=== PATIENT | female | born 1980 | race Caucasian/White ===

== ENCOUNTER 2017-08-06 20:48 | Emergency (ER) | payer OTHER, MEDICAID ==
[~2017-08-06] VITALS: Ht 167.6 cm; Wt 81.7 kg
[~2017-08-06 20:48] MED LIST: ACETAMINOPHEN-1 EAC1 PO; AUGMENTIN 875875 MG PO; BENTYL 20 MG TA20 M1 PO; CIPRO250 M2 PO; CIPRO500 MG PO; CIPROFLOXACIN500 M1 PO; CIPROFLOXACIN500 M3 PO; COLACE100 MG PO; FLAGYL500 MG PO; FLEXERIL PO; HYDROCODONE-AP1 EAC6 PO; HYDROCODONE-APA1 TA1 PO; IBUPROFEN 800800 M1 PO; IBUPROFEN 800800 MG PO; IRON325 PO; LORTAB 5 MG/5001 TA1 PO; NAPROSYN500 MG PO; NOHOMEMEDICATIONS; NORCO 5-325 TA1 EACH PO; NORETHINDRONE AC5 M1 PO; ONDANSETRON HCL4 M2 PO; PENICILLIN VK250 MG PO; PHENERGAN 25 MG25 MG PO; PYRIDIUM200 MG PO; TRAMADOL 50 MG50 MG PO; TRINATE TABLET1 TAB PO; TYLENOL325 MG PO; ULTRAM 50MG TAB50 MG PO; ZOFRAN ODT4 MG PO; [UNRECOGNIZED DRUG - OTHER]
[2017-08-06] MEDS ORDERED: NOHOMEMEDICATIONS (21:01)
[2017-08-06 21:22] LABS: ABSOLUTE BASOPHILS 0.1 thou/uL (0.0-0.2); ABSOLUTE EOSINOPHILS 0.2 thou/uL (0.0-0.7); ABSOLUTE LYMPHOCYTES 2.2 thou/uL (0.8-5.3); ABSOLUTE MONOCYTES 0.4 thou/uL (0.0-1.2); ABSOLUTE NEUTROPHILS 1.6 thou/uL (1.6-8.1); BASOPHILS 1.4 %; EOSINOPHILS 4.2 %; HEMATOCRIT 25.2 % (37.0-47.0); HEMOGLOBIN 7.7 gm/dL (12.0-15.0); LYMPHOCYTES 50.1 %; MCH 19.6 pg (26.0-34.0); MCHC 30.7 g/dL (28.0-37.0); MCV 63.9 fL (80.0-100.0); MONOCYTES 8.5 %; MPV 8.4 fl. (7.2-11.1); NUCLEATED RBCS 0 /100WBC; PLATELET COUNT* 134 thou/uL (150-400); POLYS 35.8 %; RBC 3.94 mil/uL (4.20-5.00); RDW-CV 21.8 % (10.5-14.5); WBC 4.5 thou/uL (4.0-11.0)
[2017-08-06 21:29] LABS: CALCIUM 8.5 mg/dL (8.5-10.1); CREATININE 0.6 mg/dL (0.6-1.3); POTASSIUM 3.8 mmol/L (3.5-5.1)
[2017-08-06 21:34] LABS: ALBUMIN 3.6 g/dL (3.4-5.0); TOTAL BILIRUBIN 0.4 mg/dL (<0.1-1.0); TOTAL PROTEIN 7.3 g/dL (6.4-8.2)
[2017-08-06 21:48] LABS: PLATELET ESTIMATE ADEQUATE
[2017-08-06 21:49] LABS: HYPOCHROMASIA 2+; OVALOCYTES Occasional
[2017-08-06 21:52] LABS: ANISOCYTOSIS 2+; MICROCYTES 3+
[2017-08-06 23:08] LABS: URINE BILIRUBIN NEGATIVE (Negative); URINE BLOOD 3+ (Negative); URINE CLARITY CLOUDY; URINE COLOR RED; URINE GLUCOSE-RANDOM NEGATIVE (Negative); URINE KETONES TRACE (Negative); URINE LEUKOCYTES-REFLEX NEGATIVE (Negative); URINE NITRITE-REFLEX NEGATIVE (Negative); URINE PROTEIN 2+ (Negative); URINE SPECIFIC GRAVITY >= 1.030 (1.005-1.030); URINE UROBILINOGEN 0.2 E.U./dl (0.2-1.0)
[2017-08-06 23:10] LABS: URINE RBC >20 Many /HPF (0-2)
[2017-08-06 23:11] LABS: CASTS None Seen /LPF (None Seen); URINE WBC-REFLEX 0-5 Rare /HPF (0-5)
[2017-08-06 23:12] LABS: BACTERIA-REFLEX 1-9 Few /HPF (None Seen); CRYSTALS None Seen /LPF (None Seen); SQUAMOUS 4-10 Moderate /LPF (0-3)
[2017-08-06 23:13] LABS: MUCUS None Seen strn/LPF (None Seen)
[2017-08-07 00:28] VITALS: BP 113/70
== END 2017-08-07 00:30 | disposition home or self-care (01) ==
LOC: M.ERS 20:48
PROVIDERS: Nurse Practitioner Family
DX: N93.8 Other specified abnormal uterine and vaginal bleeding (principal); D50.0 Iron deficiency anemia secondary to blood loss (chronic); M19.90 Unspecified osteoarthritis, unspecified site; Z87.09 Personal history of other diseases of the respiratory system; Z88.1 Allergy status to other antibiotic agents

== ENCOUNTER 2017-08-24 17:43 | Emergency (ER) | payer OTHER, MEDICAID ==
[~2017-08-24] VITALS: Ht 167.6 cm; Wt 77.1 kg
[2017-08-24 18:30] LABS: URINE BILIRUBIN NEGATIVE (Negative); URINE BLOOD TRACE (Negative); URINE CLARITY SL CLOUDY; URINE COLOR YELLOW; URINE GLUCOSE-RANDOM NEGATIVE (Negative); URINE KETONES TRACE (Negative); URINE PROTEIN 1+ (Negative); URINE SPECIFIC GRAVITY 1.025 (1.005-1.030)
[2017-08-24 18:31] LABS: URINE LEUKOCYTES-REFLEX 3+ (Negative); URINE NITRITE-REFLEX POSITIVE (Negative)
[2017-08-24 19:06] LABS: BACTERIA-REFLEX >30 Many /HPF (None Seen); CASTS None Seen /LPF (None Seen); MUCUS 4-6 Moderate strn/LPF (None Seen); SQUAMOUS 4-10 Moderate /LPF (0-3); URINE RBC 3-10 Few /HPF (0-2); URINE WBC-REFLEX >25 Many /HPF (0-5)
[2017-08-24 19:07] LABS: CRYSTALS None Seen /LPF (None Seen)
[2017-08-24] MEDS ORDERED: CIPRO500 MG PO (19:33)
[2017-08-24] MEDS ORDERED: TRAMADOL 50 MG50 MG PO (19:33)
[2017-08-24 20:15] VITALS: BP 99/71
== END 2017-08-24 20:16 | disposition home or self-care (01) ==
LOC: M.ERS 17:43
PROVIDERS: Physician Assistant
DX: N39.0 Urinary tract infection, site not specified (principal); R51 Headache; M25.551 Pain in right hip; M19.90 Unspecified osteoarthritis, unspecified site; R09.1 Pleurisy

== ENCOUNTER 2017-11-24 14:23 | Emergency (ER) | payer OTHER, MEDICAID ==
[~2017-11-24] VITALS: Ht 167.6 cm; Wt 81.7 kg
[2017-11-24 15:02] LABS: HEMATOCRIT 23.5 % (37.0-47.0); HEMOGLOBIN 7.2 gm/dL (12.0-15.0); MCH 18.9 pg (26.0-34.0); MCHC 30.6 g/dL (28.0-37.0); MCV 61.7 fL (80.0-100.0); MPV 8.5 fl. (7.2-11.1); NUCLEATED RBCS 0 /100WBC; PLATELET COUNT* 176 thou/uL (150-400); RDW-CV 20.7 % (10.5-14.5); WBC 5.5 thou/uL (4.0-11.0)
[2017-11-24 15:11] LABS: ANION GAP 11 mmol/L (7-16); BUN 13 mg/dL (7-18); CALCIUM 8.6 mg/dL (8.5-10.1); CHLORIDE 104 mmol/L (98-107); CO2 26 mmol/L (21-32); CREATININE 0.7 mg/dL (0.6-1.3); GLUCOSE 97 mg/dL (70-99); POTASSIUM 3.4 mmol/L (3.5-5.1); SODIUM 141 mmol/L (136-145)
[2017-11-24 15:14] LABS: APTT 23.3 Seconds (25.0-31.3); INR 1.1; PROTIME 10.3 Seconds (9.20-11.50)
[2017-11-24 15:29] LABS: ABSOLUTE BASOPHILS 0.1 thou/uL (0.0-0.2); ABSOLUTE EOSINOPHILS 0.1 thou/uL (0.0-0.7); ABSOLUTE LYMPHOCYTES 2.7 thou/uL (0.8-5.3); ABSOLUTE MONOCYTES 0.2 thou/uL (0.0-1.2); ABSOLUTE NEUTROPHILS 2.5 thou/uL (1.6-8.1)
[2017-11-24 15:30] LABS: ALBUMIN 3.7 g/dL (3.4-5.0); ALKALINE PHOSPHATASE 41 U/L (46-116); CK-MB MASS < 0.5 ng/mL (<0.5-3.6); LIPASE 194 U/L (73-393); MAGNESIUM 2.2 mg/dL (1.8-2.4); NT-PRO BRAIN NAT PEPTIDE 72 pg/mL (<300); PLATELET ESTIMATE ADEQUATE; SGOT 14 U/L (15-37); SGPT 17 U/L (30-65); TOTAL BILIRUBIN 0.3 mg/dL (<0.1-1.0); TOTAL PROTEIN 7.1 g/dL (6.4-8.2); TROPONIN-I LEVEL <0.06 ng/mL (<0.06)
[2017-11-24 15:31] LABS: ANISOCYTOSIS 2+; HYPOCHROMASIA 3+; MICROCYTES 3+; OVALOCYTES 1+; POLYCHROMASIA Occasional
[2017-11-24 15:48] VITALS: BP 122/70
--- NOTE | 2017-11-25 16:53 | EKG ---
[place] [address] ELECTROCARDIOGRAM REPORT Name: APOLINAR PADILLA Room: [facility]#: [id number] Admission: 11/24/17 Attend Phys: Discharge: 11/24/17 Date of : 82 Report #: [id number] THIS REPORT FOR: //name// [facility] Test Date: 2017-11-24 Test Time: 14:30:12 Pat Name: APOLINAR PADILLA Department: Room: Gender: F Field Attendant: ELAINE : 1980 Requested By: Zan Adkins Order Number: [id number] MD: Carlos Mccrary Measurements Intervals [place] Rate: 66 P: 61 [place]: 154 QRS: 26 QRSD: 95 T: 29 QT: 397 QTc: 416 Interpretive Statements Sinus rhythm Compared to ECG 11/14/2016 12:28:47 Sinus bradycardia no longer present Electronically Signed On 11-25-2017 16:53:23 CDT by Carlos Mccrary [email or web address] <ELECTRONICALLY SIGNED> By: Carlos Mccrary MD, [facility] 11/25/17 1653 1430 1430 Carlos Mccrary MD, FACC /EPI
== END 2017-11-24 15:49 | disposition home or self-care (01) ==
LOC: M.ERS 14:23
PROVIDERS: Family Medicine
DX: D64.9 Anemia, unspecified (principal); M19.90 Unspecified osteoarthritis, unspecified site; N80.9 Endometriosis, unspecified; M41.9 Scoliosis, unspecified; Z88.8 Allergy status to other drugs, medicaments and biological substances

== ENCOUNTER 2018-02-25 15:15 | Emergency (ER) | payer OTHER, MEDICAID ==
[~2018-02-25] VITALS: Ht 167.6 cm; Wt 77.1 kg
[2018-02-25] MEDS ORDERED: MEDROLDOSEPACK PO (17:25)
[2018-02-25 17:36] VITALS: BP 101/69
== END 2018-02-25 17:37 | disposition home or self-care (01) ==
LOC: M.ERS 15:15
DX: R20.2 Paresthesia of skin (principal); N80.9 Endometriosis, unspecified; M19.90 Unspecified osteoarthritis, unspecified site; M41.9 Scoliosis, unspecified; Z86.2 Personal history of diseases of the blood and blood-forming organs and certain disorders involving the immune mechanism; Z88.1 Allergy status to other antibiotic agents

== ENCOUNTER 2018-10-02 20:54 | Emergency (ER) | payer OTHER ==
[~2018-10-02] VITALS: Ht 167.6 cm; Wt 81.7 kg
[~2018-10-02 20:54] MED LIST changes: +BENZONATATE200 MG PO; +GABAPENTIN 100100 MG PO; +MEDROLDOSEPACK PO; +PREDNISONE 20 M20 M1 PO; +PROVERA10 MG PO; +ZPAK PO
[2018-10-02 21:22] LABS: ABSOLUTE BASOPHILS 0.1 thou/uL (0.0-0.2); ABSOLUTE EOSINOPHILS 0.1 thou/uL (0.0-0.7); ABSOLUTE LYMPHOCYTES 2.5 thou/uL (0.8-5.3); ABSOLUTE MONOCYTES 0.5 thou/uL (0.0-1.2); ABSOLUTE NEUTROPHILS 2.4 thou/uL (1.6-8.1); BASOPHILS 1.1 %; EOSINOPHILS 1.1 %; HEMATOCRIT 26.3 % (37.0-47.0); HEMOGLOBIN 7.9 gm/dL (12.0-15.0); MCH 18.9 pg (26.0-34.0); MONOCYTES 9.3 %; MPV 8.3 fl. (7.2-11.1); NUCLEATED RBCS 0 /100WBC; PLATELET COUNT* 398 thou/uL (150-400); POLYS 43.5 %; RBC 4.18 mil/uL (4.20-5.00); RDW-CV 24.3 % (10.5-14.5); WBC 5.6 thou/uL (4.0-11.0)
[2018-10-02 21:24] LABS: URINE BILIRUBIN NEGATIVE (Negative); URINE BLOOD NEGATIVE (Negative); URINE CLARITY CLEAR; URINE COLOR YELLOW; URINE GLUCOSE-RANDOM NEGATIVE (Negative); URINE KETONES TRACE (Negative); URINE LEUKOCYTES-REFLEX NEGATIVE (Negative); URINE NITRITE-REFLEX NEGATIVE (Negative); URINE PROTEIN NEGATIVE (Negative); URINE SPECIFIC GRAVITY >= 1.030 (1.005-1.030)
[2018-10-02 21:32] LABS: ALBUMIN 3.9 g/dL (3.4-5.0); CALCIUM 9.1 mg/dL (8.5-10.1); CREATININE 0.7 mg/dL (0.6-1.3); POTASSIUM 3.4 mmol/L (3.5-5.1); TOTAL BILIRUBIN 0.5 mg/dL (<0.1-1.0); TOTAL PROTEIN 7.6 g/dL (6.4-8.2)
[2018-10-02 21:55] LABS: ANISOCYTOSIS 2+; OVALOCYTES 2+; TARGET CELLS 1+; TEARDROPS Occasional
[2018-10-02 21:56] LABS: HYPOCHROMASIA 1+; MICROCYTES 2+; PLATELET ESTIMATE ADEQUATE; POIKILOCYTOSIS 2+; POLYCHROMASIA 1+
[2018-10-02] MEDS ORDERED: CITRATE OF MAG296 ML PO (21:59)
[2018-10-02 22:27] VITALS: BP 117/66
== END 2018-10-02 22:27 | disposition home or self-care (01) ==
LOC: M.ERS 20:54
PROVIDERS: Physician Assistant
DX: D64.9 Anemia, unspecified (principal); R10.84 Generalized abdominal pain; Z88.8 Allergy status to other drugs, medicaments and biological substances; N80.9 Endometriosis, unspecified

== ENCOUNTER 2018-10-18 06:18 | Emergency (ER) | payer OTHER ==
[~2018-10-18] VITALS: Ht 167.6 cm; Wt 77.1 kg
[~2018-10-18 06:18] MED LIST changes: +CITRATE OF MAG296 ML PO
[2018-10-18] MEDS ORDERED: VITAMINC500 PO (06:30)
[2018-10-18 06:39] LABS: URINE BILIRUBIN NEGATIVE (Negative); URINE BLOOD NEGATIVE (Negative); URINE CLARITY CLEAR; URINE COLOR YELLOW; URINE GLUCOSE-RANDOM NEGATIVE (Negative); URINE KETONES NEGATIVE (Negative); URINE LEUKOCYTES-REFLEX NEGATIVE (Negative); URINE NITRITE-REFLEX NEGATIVE (Negative); URINE PROTEIN NEGATIVE (Negative); URINE SPECIFIC GRAVITY >= 1.030 (1.005-1.030); URINE UROBILINOGEN 0.2 E.U./dl (0.2-1.0)
[2018-10-18] MEDS ORDERED: FLEXERIL PO (07:02)
[2018-10-18 07:12] VITALS: BP 109/69
== END 2018-10-18 07:15 | disposition home or self-care (01) ==
LOC: M.ERS 06:18
PROVIDERS: Emergency Medicine
DX: M79.10 Myalgia, unspecified site (principal); R10.31 Right lower quadrant pain; Z88.8 Allergy status to other drugs, medicaments and biological substances

== ENCOUNTER 2018-11-03 15:27 | Emergency (ER) | payer OTHER ==
[~2018-11-03] VITALS: Ht 167.6 cm; Wt 77.1 kg
[~2018-11-03 15:27] MED LIST changes: +VITAMINC500 PO
[2018-11-03] MEDS ORDERED: NAPROSYN500 MG PO (15:55)
[2018-11-03 16:45] VITALS: BP 107/61
== END 2018-11-03 16:46 | disposition home or self-care (01) ==
LOC: M.ERS 15:27
DX: S20.212A Contusion of left front wall of thorax, initial encounter (principal); N80.9 Endometriosis, unspecified; M19.90 Unspecified osteoarthritis, unspecified site; Z88.8 Allergy status to other drugs, medicaments and biological substances; Z88.1 Allergy status to other antibiotic agents; Z86.2 Personal history of diseases of the blood and blood-forming organs and certain disorders involving the immune mechanism; W01.0XXA Fall on same level from slipping, tripping and stumbling without subsequent striking against object, initial encounter; Y92.89 Other specified places as the place of occurrence of the external cause; Y93.89 Activity, other specified; Y99.8 Other external cause status

== ENCOUNTER 2019-01-29 07:06 | Emergency (ER) | payer OTHER ==
[~2019-01-29] VITALS: Ht 167.6 cm; Wt 77.1 kg
[2019-01-29 07:41] LABS: ABSOLUTE BASOPHILS 0.1 thou/uL (0.0-0.2); ABSOLUTE LYMPHOCYTES 2.1 thou/uL (0.8-5.3); ABSOLUTE MONOCYTES 0.4 thou/uL (0.0-1.2); ABSOLUTE NEUTROPHILS 2.6 thou/uL (1.6-8.1); BASOPHILS 1.4 %; HEMATOCRIT 21.4 % (37.0-47.0); LYMPHOCYTES 39.9 %; MCH 18.9 pg (26.0-34.0); MCHC 30.5 g/dL (28.0-37.0); MCV 61.8 fL (80.0-100.0); MONOCYTES 8.1 %; MPV 8.6 fl. (7.2-11.1); NUCLEATED RBCS 0 /100WBC; PLATELET COUNT* 190 thou/uL (150-400); POLYS 49.6 %; RBC 3.47 mil/uL (4.20-5.00); WBC 5.2 thou/uL (4.0-11.0)
[2019-01-29 07:49] LABS: HEMOGLOBIN 6.5 gm/dL (12.0-15.0)
[2019-01-29 07:59] LABS: CALCIUM 8.7 mg/dL (8.5-10.1); CREATININE 0.7 mg/dL (0.6-1.3); POTASSIUM 3.3 mmol/L (3.5-5.1)
[2019-01-29 08:04] LABS: ALBUMIN 3.4 g/dL (3.4-5.0); TOTAL BILIRUBIN 0.6 mg/dL (<0.1-1.0); TOTAL PROTEIN 6.8 g/dL (6.4-8.2)
[2019-01-29 08:19] LABS: HYPOCHROMASIA 3+
[2019-01-29 08:21] LABS: ANISOCYTOSIS 2+; MICROCYTES 3+; PLATELET ESTIMATE ADEQUATE
[2019-01-29 09:44] VITALS: BP 109/62
--- NOTE | 2019-01-30 13:50 | EKG ---
[place] [address] ELECTROCARDIOGRAM REPORT Name: APOLINAR PADILLA [id number] Admission: 01/29/19 Attend Phys: Discharge: 01/29/19 Date of : 82 Report #: [id number] THIS REPORT FOR: //name// [facility] ED Test Date: 2019-01-29 Test Time: 07:20:36 Pat Name: APOLINAR PADILLA Department: Room: Gender: F Color Control Operator: OLIVER : 1980 Requested By: Zan Adkins Order Number: [id number] MD: Matti Dover Measurements Intervals [place] Rate: 67 P: 58 [place]: 166 QRS: 18 QRSD: 102 T: 26 QT: 428 QTc: 452 Interpretive Statements Sinus rhythm nonspecific right precordial st-t changes Compared to ECG 11/24/2017 14:30:12 [address] st-t changes are noted Electronically Signed On 01-30-2019 13:50:14 CDT by Matti Dover [email or web address] <ELECTRONICALLY SIGNED> By: Matti Dover MD, [facility] 01/30/19 1350 9 9 Matti Dover MD, FAC /EPI
== END 2019-01-29 09:44 | disposition home or self-care (01) ==
LOC: M.ERS 07:06
PROVIDERS: Family Medicine
DX: R51 Headache (principal); D64.9 Anemia, unspecified; M19.90 Unspecified osteoarthritis, unspecified site; Z88.8 Allergy status to other drugs, medicaments and biological substances

== ENCOUNTER 2019-04-04 07:44 | Emergency (ER) | payer OTHER ==
[~2019-04-04] VITALS: Ht 167.6 cm; Wt 74.8 kg
[2019-04-04 07:54] VITALS: BP 110/62
== END 2019-04-04 08:27 | disposition home or self-care (01) ==
LOC: M.ERS 07:44
DX: M79.671 Pain in right foot (principal); M19.90 Unspecified osteoarthritis, unspecified site; N80.9 Endometriosis, unspecified; Z98.890 Other specified postprocedural states; Z88.6 Allergy status to analgesic agent; Z98.51 Tubal ligation status; Z86.2 Personal history of diseases of the blood and blood-forming organs and certain disorders involving the immune mechanism

== ENCOUNTER 2019-04-18 11:55 | Emergency (ER) | payer OTHER ==
[~2019-04-18] VITALS: Ht 167.6 cm; Wt 74.8 kg
[2019-04-18 13:17] LABS: URINE BILIRUBIN NEGATIVE (Negative); URINE BLOOD 3+ (Negative); URINE CLARITY CLEAR; URINE COLOR YELLOW; URINE GLUCOSE-RANDOM NEGATIVE (Negative); URINE KETONES NEGATIVE (Negative); URINE LEUKOCYTES-REFLEX NEGATIVE (Negative); URINE NITRITE-REFLEX NEGATIVE (Negative); URINE PROTEIN NEGATIVE (Negative)
[2019-04-18 13:24] LABS: BACTERIA-REFLEX 1-9 Few /HPF (None Seen); CASTS None Seen /LPF (None Seen); CRYSTALS None Seen /LPF (None Seen); MUCUS 0-3 Light strn/LPF (None Seen); SQUAMOUS 4-10 Moderate /LPF (0-3); URINE RBC 3-10 Few /HPF (0-2); URINE WBC-REFLEX 0-5 Rare /HPF (0-5)
[2019-04-18 13:48] VITALS: BP 121/78
== END 2019-04-18 13:49 | disposition home or self-care (01) ==
LOC: M.ERS 11:55
PROVIDERS: Nurse Practitioner Family
DX: J00 Acute nasopharyngitis [common cold] (principal); R35.0 Frequency of micturition; N80.9 Endometriosis, unspecified; M19.90 Unspecified osteoarthritis, unspecified site; Z88.6 Allergy status to analgesic agent; Z88.1 Allergy status to other antibiotic agents; Z86.2 Personal history of diseases of the blood and blood-forming organs and certain disorders involving the immune mechanism; Z21 Asymptomatic human immunodeficiency virus [HIV] infection status; Z98.890 Other specified postprocedural states

== ENCOUNTER 2019-05-25 17:32 | Emergency (ER) | payer OTHER ==
[~2019-05-25] VITALS: Ht 167.6 cm; Wt 79.4 kg
[2019-05-25 19:16] LABS: URINE BILIRUBIN NEGATIVE (Negative); URINE BLOOD 2+ (Negative); URINE CLARITY CLEAR; URINE COLOR YELLOW; URINE GLUCOSE-RANDOM NEGATIVE (Negative); URINE KETONES NEGATIVE (Negative); URINE NITRITE-REFLEX NEGATIVE (Negative); URINE PROTEIN NEGATIVE (Negative); URINE SPECIFIC GRAVITY >= 1.030 (1.005-1.030); URINE UROBILINOGEN 0.2 E.U./dl (0.2-1.0)
[2019-05-25 19:26] LABS: URINE LEUKOCYTES-REFLEX 2+ (Negative)
[2019-05-25 19:28] LABS: SQUAMOUS >10 Many /LPF (0-3)
[2019-05-25 19:29] LABS: URINE WBC-REFLEX 6-15 Few /HPF (0-5)
[2019-05-25 19:30] LABS: URINE RBC 3-10 Few /HPF (0-2)
[2019-05-25 19:31] LABS: BACTERIA-REFLEX >30 Many /HPF (None Seen); CASTS None Seen /LPF (None Seen); CRYSTALS None Seen /LPF (None Seen); MUCUS >6 Heavy strn/LPF (None Seen)
[2019-05-25] MEDS ORDERED: COLACE100 MG PO (20:16)
[2019-05-25] MEDS ORDERED: FLAGYL500 M1 PO (20:16)
[2019-05-25 20:32] VITALS: BP 119/76
== END 2019-05-25 20:33 | disposition home or self-care (01) ==
LOC: M.ERS 17:32
PROVIDERS: Nurse Practitioner Family
DX: A59.9 Trichomoniasis, unspecified (principal); K59.00 Constipation, unspecified; N80.9 Endometriosis, unspecified; M19.90 Unspecified osteoarthritis, unspecified site; Z98.51 Tubal ligation status; Z98.890 Other specified postprocedural states; Z86.2 Personal history of diseases of the blood and blood-forming organs and certain disorders involving the immune mechanism

== ENCOUNTER 2019-06-01 17:44 | Emergency (ER) | payer OTHER ==
[~2019-06-01] VITALS: Ht 167.6 cm; Wt 79.8 kg
[~2019-06-01 17:44] MED LIST changes: +FLAGYL500 M1 PO
[2019-06-01] MEDS ORDERED: TYLENOL WITH CO1 TA1 PO (18:51)
[2019-06-01 19:21] VITALS: BP 125/75
== END 2019-06-01 19:22 | disposition home or self-care (01) ==
LOC: M.ERS 17:44
DX: S32.2XXA Fracture of coccyx, initial encounter for closed fracture (principal); M19.90 Unspecified osteoarthritis, unspecified site; N80.9 Endometriosis, unspecified; Z86.2 Personal history of diseases of the blood and blood-forming organs and certain disorders involving the immune mechanism; Z98.890 Other specified postprocedural states; Z88.1 Allergy status to other antibiotic agents; Z88.6 Allergy status to analgesic agent; Z98.51 Tubal ligation status; W01.0XXA Fall on same level from slipping, tripping and stumbling without subsequent striking against object, initial encounter; Y93.89 Activity, other specified; Y92.89 Other specified places as the place of occurrence of the external cause; Y99.8 Other external cause status

== ENCOUNTER 2019-07-19 15:30 | Emergency (ER) | payer OTHER ==
[~2019-07-19] VITALS: Ht 167.6 cm; Wt 65.8 kg
[~2019-07-19 15:30] MED LIST changes: +TYLENOL WITH CO1 TA1 PO
[2019-07-19 15:55] LABS: URINE BILIRUBIN NEGATIVE (Negative); URINE BLOOD 1+ (Negative); URINE CLARITY CLEAR; URINE COLOR YELLOW; URINE GLUCOSE-RANDOM NEGATIVE (Negative); URINE KETONES TRACE (Negative); URINE LEUKOCYTES-REFLEX NEGATIVE (Negative); URINE NITRITE-REFLEX NEGATIVE (Negative); URINE PROTEIN NEGATIVE (Negative); URINE SPECIFIC GRAVITY >= 1.030 (1.005-1.030)
[2019-07-19 16:03] LABS: SQUAMOUS 4-10 Moderate /LPF (0-3); URINE RBC 0-2 Rare /HPF (0-2); URINE WBC-REFLEX 0-5 Rare /HPF (0-5)
[2019-07-19 16:04] LABS: CRYSTALS None Seen /LPF (None Seen); HYALINE CASTS 0-3 Few /LPF (None Seen); MUCUS >6 Heavy strn/LPF (None Seen)
[2019-07-19] MEDS ORDERED: ROBAXIN 750 MG750 MG PO (16:08)
[2019-07-19] MEDS ORDERED: NAPROSYN500 M1 PO (16:08)
[2019-07-19 16:23] VITALS: BP 114/77
== END 2019-07-19 16:24 | disposition home or self-care (01) ==
LOC: M.ERS 15:30
PROVIDERS: Nurse Practitioner Family
DX: S29.012A Strain of muscle and tendon of back wall of thorax, initial encounter (principal); M19.90 Unspecified osteoarthritis, unspecified site; Z98.890 Other specified postprocedural states; Z86.2 Personal history of diseases of the blood and blood-forming organs and certain disorders involving the immune mechanism; Z88.8 Allergy status to other drugs, medicaments and biological substances; X50.0XXA Overexertion from strenuous movement or load, initial encounter; Y93.89 Activity, other specified; Y92.511 Restaurant or cafe as the place of occurrence of the external cause; Y99.8 Other external cause status

== ENCOUNTER 2019-08-10 23:15 | Emergency (ER) | payer OTHER ==
[~2019-08-10] VITALS: Ht 167.6 cm; Wt 72.6 kg
[~2019-08-10 23:15] MED LIST changes: +NAPROSYN500 M1 PO; +ROBAXIN 750 MG750 MG PO
[2019-08-11 00:01] LABS: CALCIUM 8.4 mg/dL (8.5-10.1); CREATININE 0.8 mg/dL (0.6-1.3)
[2019-08-11 00:06] LABS: ALBUMIN 3.8 g/dL (3.4-5.0); TOTAL BILIRUBIN 0.6 mg/dL (<0.1-1.0); TOTAL PROTEIN 7.1 g/dL (6.4-8.2)
[2019-08-11 00:16] LABS: INFLUENZA A ANTIGEN Negative (Negative); INFLUENZA B ANTIGEN Negative (Negative)
[2019-08-11 00:24] LABS: ABSOLUTE LYMPHOCYTES 1.2 thou/uL (0.8-5.3); ABSOLUTE MONOCYTES 0.3 thou/uL (0.0-1.2); ABSOLUTE NEUTROPHILS 1.7 thou/uL (1.6-8.1); BASOPHILS 1.4 %; EOSINOPHILS 1.3 %; HEMATOCRIT 24.5 % (37.0-47.0); HEMOGLOBIN 7.5 gm/dL (12.0-15.0); LYMPHOCYTES 36.5 %; MCH 18.9 pg (26.0-34.0); MCHC 30.7 g/dL (28.0-37.0); MCV 61.6 fL (80.0-100.0); MONOCYTES 9.4 %; MPV 8.6 fl. (7.2-11.1); NUCLEATED RBCS 0 /100WBC; PLATELET COUNT* 274 thou/uL (150-400); POLYS 51.4 %; RBC 3.97 mil/uL (4.20-5.00); RDW-CV 22.5 % (10.5-14.5); WBC 3.4 thou/uL (4.0-11.0)
[2019-08-11 01:18] LABS: URINE BLOOD NEGATIVE (Negative); URINE CLARITY CLEAR; URINE COLOR DARK YELLOW; URINE GLUCOSE-RANDOM NEGATIVE (Negative); URINE KETONES 2+ (Negative); URINE LEUKOCYTES-REFLEX NEGATIVE (Negative); URINE NITRITE-REFLEX NEGATIVE (Negative); URINE PROTEIN 1+ (Negative); URINE SPECIFIC GRAVITY >= 1.030 (1.005-1.030); URINE UROBILINOGEN 0.2 E.U./dl (0.2-1.0)
[2019-08-11 01:19] LABS: ICTOTEST (BILI CONFIRMATORY) Negative (Negative); URINE BILIRUBIN 1+ (Negative)
[2019-08-11] MEDS ORDERED: POTASSIUM20 PO (01:21)
[2019-08-11] MEDS ORDERED: ZOFRAN ODT4 MG DISSOLVE (01:21)
[2019-08-11 01:34] VITALS: BP 141/74
[2019-08-11 03:54] LABS: ANISOCYTOSIS 2+; HYPOCHROMASIA 3+; MICROCYTES 3+
[2019-08-11 03:55] LABS: LARGE PLATELETS RARE; PLATELET ESTIMATE ADEQUATE
--- NOTE | 2019-08-11 10:05 | EKG ---
[place] [address] ELECTROCARDIOGRAM REPORT Name: APOLINAR AGUSTIN [id number] Admission: 08/10/19 Attend Phys: Discharge: 08/11/19 Date of : 82 Report #: [id number] THIS REPORT FOR: //name// [facility] ED Test Date: 2019-08-10 Test Time: 23:34:24 Pat Name: APOLINAR AGUSTIN Department: Room: Gender: F Medicine Assistant: : 1980 Requested By: Elvin Douglas Order Number: [id number] MD: Gray Ball Measurements Intervals [place] Rate: 77 P: 66 [place]: 168 QRS: 38 QRSD: 99 T: 28 QT: 385 QTc: 436 Interpretive Statements Sinus rhythm Probable left ventricular hypertrophy Borderline T abnormalities, anterior leads Compared to ECG 01/29/2019 07:20:36 ST (T wave) deviation no longer present Electronically Signed On 08-11-2019 10:04:51 PARAEDUCATOR by Gray Ball [email or web address] <ELECTRONICALLY SIGNED> By: Gray Ball MD, [facility] 08/11/19 1004 2334 2334 Gray Ball MD, [facility] /EPI
== END 2019-08-11 01:37 | disposition home or self-care (01) ==
LOC: M.ERS 23:15
PROVIDERS: Emergency Medicine Emergency Medical Services
DX: K52.9 Noninfective gastroenteritis and colitis, unspecified (principal); M19.90 Unspecified osteoarthritis, unspecified site; Z86.2 Personal history of diseases of the blood and blood-forming organs and certain disorders involving the immune mechanism; Z98.890 Other specified postprocedural states; Z88.8 Allergy status to other drugs, medicaments and biological substances

== ENCOUNTER 2019-10-28 13:49 | Emergency (ER) | payer OTHER ==
[~2019-10-28] VITALS: Ht 167.6 cm; Wt 74.8 kg
[~2019-10-28 13:49] MED LIST changes: +POTASSIUM20 PO; +ZOFRAN ODT4 MG DISSOLVE
[2019-10-28] MEDS ORDERED: IRON236 MG PO (14:02)
[2019-10-28 14:41] LABS: URINE BILIRUBIN 1+ (Negative); URINE BLOOD NEGATIVE (Negative); URINE CLARITY SL CLOUDY; URINE COLOR DARK YELLOW; URINE GLUCOSE-RANDOM NEGATIVE (Negative); URINE KETONES TRACE (Negative); URINE LEUKOCYTES-REFLEX NEGATIVE (Negative); URINE NITRITE-REFLEX NEGATIVE (Negative); URINE PROTEIN NEGATIVE (Negative); URINE SPECIFIC GRAVITY >= 1.030 (1.005-1.030)
[2019-10-28 14:43] LABS: ICTOTEST (BILI CONFIRMATORY) Negative (Negative)
[2019-10-28 14:49] LABS: CASTS None Seen /LPF (None Seen); CRYSTALS None Seen /LPF (None Seen); MUCUS >6 Heavy strn/LPF (None Seen); SQUAMOUS 4-10 Moderate /LPF (0-3); URINE RBC 3-10 Few /HPF (0-2); URINE WBC-REFLEX 6-15 Few /HPF (0-5)
[2019-10-28 14:51] LABS: ABSOLUTE BASOPHILS 0.1 thou/uL (0.0-0.2); ABSOLUTE EOSINOPHILS 0.1 thou/uL (0.0-0.7); ABSOLUTE LYMPHOCYTES 2.5 thou/uL (0.8-5.3); ABSOLUTE MONOCYTES 0.5 thou/uL (0.0-1.2); ABSOLUTE NEUTROPHILS 1.7 thou/uL (1.6-8.1); BASOPHILS 1.4 %; EOSINOPHILS 1.2 %; HEMATOCRIT 26.5 % (37.0-47.0); HEMOGLOBIN 8.1 gm/dL (12.0-15.0); LYMPHOCYTES 51.1 %; MCH 18.8 pg (26.0-34.0); MCHC 30.8 g/dL (28.0-37.0); MCV 61.2 fL (80.0-100.0); MPV 8.3 fl. (7.2-11.1); NUCLEATED RBCS 0 /100WBC; PLATELET COUNT* 303 thou/uL (150-400); POLYS 35.3 %; RBC 4.33 mil/uL (4.20-5.00); RDW-CV 19.8 % (10.5-14.5); WBC 4.8 thou/uL (4.0-11.0)
[2019-10-28 15:01] LABS: CALCIUM 8.3 mg/dL (8.5-10.1); CREATININE 0.6 mg/dL (0.6-1.3); POTASSIUM 3.5 mmol/L (3.5-5.1)
[2019-10-28 15:05] LABS: ALBUMIN 3.6 g/dL (3.4-5.0); TOTAL BILIRUBIN 0.7 mg/dL (<0.1-1.0); TOTAL PROTEIN 7.5 g/dL (6.4-8.2)
[2019-10-28 15:21] LABS: ANISOCYTOSIS 1+; HYPOCHROMASIA 2+; MICROCYTES 2+; POIKILOCYTOSIS 1+; POLYCHROMASIA Occasional
[2019-10-28] MEDS ORDERED: FLEXERIL PO (16:08)
[2019-10-28] MEDS ORDERED: IBUPROFEN 800800 M1 PO (16:08)
[2019-10-28] MEDS ORDERED: CITRATE OF MAG296 M1 PO (16:08)
[2019-10-28] MEDS ORDERED: ONDANSETRON HCL4 M2 PO (16:13)
[2019-10-28 16:17] VITALS: BP 125/70
== END 2019-10-28 16:18 | disposition home or self-care (01) ==
LOC: M.ERS 13:49
PROVIDERS: Nurse Practitioner Family
DX: K59.00 Constipation, unspecified (principal); N80.9 Endometriosis, unspecified; M19.90 Unspecified osteoarthritis, unspecified site; Z88.1 Allergy status to other antibiotic agents; Z98.51 Tubal ligation status; Z98.890 Other specified postprocedural states